=== PATIENT | male | born 1965 ===

== ENCOUNTER 2019-04-09 08:38 | Outpatient (CLI) | payer OTHER | END 2019-04-09 08:40 | disposition home or self-care (01) | LOC: RAD 08:38 | DX: K61.0 Anal abscess (principal); K57.32 Diverticulitis of large intestine without perforation or abscess without bleeding ==

== ENCOUNTER 2019-04-19 06:27 | Day surgery (SDC) | payer OTHER ==
[2019-04-19] MEDS ORDERED: RECTICARE30 GM TOP (09:02)
[2019-04-19] MEDS ORDERED: PERCOCET 5-3251 EACH PO (09:04)
== END 2019-04-19 15:40 | disposition home or self-care (01) ==
LOC: CIR.AMB 06:27
DX: K60.3 Anal fistula (principal); K64.8 Other hemorrhoids; K64.4 Residual hemorrhoidal skin tags